=== PATIENT | female | born 1990 | race Caucasian/White ===

== ENCOUNTER 2019-05-13 21:25 | Emergency (ER) | payer OTHER ==
[~2019-05-13] VITALS: Ht 162.6 cm; Wt 116.8 kg
[~2019-05-13 21:25] MED LIST: LEVOFLOXACIN500 MG PO; LOMOTIL 2.5-0.1 EAC1 PO; MACROBID100 MG PO; ZOFRAN ODT4 MG/UDTAB PO
[2019-05-13 21:32] VITALS: Ht 162.6 cm; Wt 116.8 kg
[2019-05-13 21:56] LABS: HCG URINE NEGATIVE (NEGATIVE)
[2019-05-13 21:57] LABS: UDS - AMPHET NEGATIVE QUAL (NEGATIVE); UDS - BARB NEGATIVE QUAL (NEGATIVE); UDS - BENZO NEGATIVE QUAL (NEGATIVE); UDS - COCAINE NEGATIVE QUAL (NEGATIVE); UDS - OPIATE NEGATIVE QUAL (NEGATIVE); UDS - PCP NEGATIVE QUAL (NEGATIVE); UDS - THC NEGATIVE QUAL (NEGATIVE)
[2019-05-13 21:58] LABS: BILIRUBIN NEGATIVE (NEGATIVE); GLUCOSE NEGATIVE (NEGATIVE); KETONE NEGATIVE (NEGATIVE); NITRITE NEGATIVE (NEGATIVE); UROBILINOGEN NORMAL (NORMAL)
[2019-05-13 21:59] LABS: BACTERIA FEW /hpf (NEGATIVE); EPITHELIAL CELLS OCC /hpf (0-5); RED CELLS - URINE 25-50 /hpf (0-5); WHITE CELLS - URINE OCC /hpf (NEGATIVE)
[2019-05-13 22:08] LABS: BASOPHILS 0.6 % (0-2); EOSINOPHILS 5.8 % (0-7); HEMATOCRIT 29.4 % (36.0-48.0); HEMOGLOBIN 9.4 g/dL (12-16); IMMATURE GRANULOCYTES 0.2 % (0-5); MCH 26.4 pg (26.0-34.0); MCV 82.6 fL (80.0-100.0); MEAN PLATELET VOLUME 11.7 fL (7.4-10.4); MONOCYTES 6.6 % (2-11); NEUTROPHILS 47.8 % (40-80); PLATELET COUNT 200 10x3/uL (130-400); RBC 3.56 10x6/uL (4.00-5.40); RDW 15.3 % (11.5-14.5); WBC 6.3 10x3/uL (4.8-10.8)
[2019-05-13 22:30] LABS: CALC OSMOLALITY 285 mosm/kg (275-300); CALCIUM 8.1 mg/dL (8.5-10.1); CHLORIDE - SERUM 106 mmol/L (98-107); CREATININE - SERUM 0.7 mg/dL (0.6-1.3); GLUCOSE 114 mg/dL (74-106); POTASSIUM - SERUM 3.9 mmol/L (3.5-5.1); SODIUM 141 mmol/L (136-145); UREA NITROGEN 23 mg/dL (7-18); eGFR NON AFRICAN AMERICAN > 90 mL/min (90-120)
[2019-05-13 22:36] LABS: ALBUMIN 3.1 g/dL (3.4-5.0); ALKALINE PHOSPHATASE 59 U/L (30-120); ALT (SGPT) 16 U/L (10-68); BILIRUBIN - TOTAL 0.12 mg/dL (0.2-1.3)
[2019-05-13] MEDS ORDERED: BENZTROPINE MESY1 MG PO (23:20)
[2019-05-13] MEDS ORDERED: BENTYL 20 MG TA20 MG PO (23:20)
[2019-05-13] MEDS ORDERED: HALDOL PO ×2 (23:21→23:27)
[2019-05-13] MEDS ORDERED: KLONOPIN1 MG PO (23:27)
[2019-05-13] MEDS ORDERED: SEROQUEL100 MG (23:28)
[2019-05-13] MEDS ORDERED: PROZAC40 MG PO (23:28)
[2019-05-13] MEDS ORDERED: NALTREXONE HCL50 MG PO (23:28)
[2019-05-13] MEDS ORDERED: NAPROSYN500 MG PO (23:28)
[2019-05-13] MEDS ORDERED: SEROQUEL300 MG PO (23:29)
--- NOTE | 2019-05-14 00:12 | NUR ---
DR DE OLIVEIRA NOTIFIED AND SITTER ORDERED. SITTER AT BEDSIDE. NOTIFIED CHARGE NURSE AND ATTENDING IN REGARDS TO ASSESSMENT FINDINGS. RESOURCES GIVEN TOPT AND SAFETY PLAN INITIATED.
[2019-05-14 02:42] VITALS: BP 132/84
== END 2019-05-14 02:47 ==
LOC: D.ER 21:25
PROVIDERS: Family Medicine
DX: F41.8 Other specified anxiety disorders (principal); R44.0 Auditory hallucinations; R45.851 Suicidal ideations

== ENCOUNTER 2019-05-23 13:48 | Emergency (ER) | payer OTHER ==
[~2019-05-23] VITALS: Ht 162.6 cm; Wt 118.2 kg
[~2019-05-23 13:48] MED LIST changes: +BENTYL 20 MG TA20 MG PO; +BENZTROPINE MESY1 MG PO; +HALDOL PO; +KLONOPIN1 MG PO; +NALTREXONE HCL50 MG PO; +NAPROSYN500 MG PO; +PROZAC40 MG PO; +SEROQUEL100 MG; +SEROQUEL300 MG PO
[2019-05-23 13:51] VITALS: Ht 162.6 cm; Wt 118.2 kg
[2019-05-23 14:13] LABS: UDS - AMPHET NEGATIVE QUAL (NEGATIVE); UDS - BARB NEGATIVE QUAL (NEGATIVE); UDS - BENZO NEGATIVE QUAL (NEGATIVE); UDS - COCAINE NEGATIVE QUAL (NEGATIVE); UDS - OPIATE NEGATIVE QUAL (NEGATIVE); UDS - PCP NEGATIVE QUAL (NEGATIVE); UDS - THC NEGATIVE QUAL (NEGATIVE)
[2019-05-23] MEDS ORDERED: HALDOL5 MG PO (14:18)
[2019-05-23 14:28] LABS: BILIRUBIN NEGATIVE (NEGATIVE); GLUCOSE NEGATIVE (NEGATIVE); KETONE NEGATIVE (NEGATIVE); NITRITE NEGATIVE (NEGATIVE)
[2019-05-23 14:29] LABS: BACTERIA MANY /hpf (NEGATIVE)
[2019-05-23 14:47] LABS: BASOPHILS 0.5 % (0-2); EOSINOPHILS 4.2 % (0-7); HEMOGLOBIN 11.4 g/dL (12-16); IMMATURE GRANULOCYTES 0.2 % (0-5); LYMPHOCYTES 36.2 % (15-50); MCH 27.1 pg (26.0-34.0); MCHC 31.7 g/dL (31.0-37.0); MCV 85.7 fL (80.0-100.0); MEAN PLATELET VOLUME 11.4 fL (7.4-10.4); MONOCYTES 7.1 % (2-11); NEUTROPHILS 51.8 % (40-80); PLATELET COUNT 238 10x3/uL (130-400); RDW 15.7 % (11.5-14.5); WBC 6.2 10x3/uL (4.8-10.8)
[2019-05-23 14:53] LABS: CALC OSMOLALITY 284 mosm/kg (275-300); CALCIUM 9.1 mg/dL (8.5-10.1); CARBON DIOXIDE 29.5 mmol/L (21.0-32.0); CHLORIDE - SERUM 103 mmol/L (98-107); CREATININE - SERUM 0.8 mg/dL (0.6-1.3); GLUCOSE 102 mg/dL (74-106); POTASSIUM - SERUM 4.2 mmol/L (3.5-5.1); SODIUM 142 mmol/L (136-145); UREA NITROGEN 17 mg/dL (7-18); eGFR NON AFRICAN AMERICAN > 90 mL/min (90-120)
--- NOTE | 2019-05-23 15:05 | NUR ---
DR. DE OLIVEIRA NOTIFIED AND SITTER ORDERED. SITTER AT BEDSIDE. NOTIFIED CHARGE NURSE AND ATTENDING IN REGARDS TO ASSESSMENT FINDINGS. RESOURCES GIVEN TO PT. AND SAFETY PLAN INITIATED.
[2019-05-23 15:08] LABS: ALBUMIN 3.8 g/dL (3.4-5.0); ALKALINE PHOSPHATASE 79 U/L (30-120); ALT (SGPT) 19 U/L (10-68); BILIRUBIN - TOTAL 0.15 mg/dL (0.2-1.3); PROTEIN - SERUM 7.3 g/dL (6.4-8.2)
[2019-05-23 18:18] VITALS: BP 124/61
== END 2019-05-23 18:19 ==
LOC: D.ER 13:48
PROVIDERS: Family Medicine
DX: R45.851 Suicidal ideations (principal); F20.9 Schizophrenia, unspecified; N39.0 Urinary tract infection, site not specified